=== PATIENT | female | born 1975 | race Caucasian/White ===

== ENCOUNTER 2017-11-03 07:46 | Emergency (ER) | payer OTHER ==
[2017-11-03 07:50] VITALS: BMI 32.9
[2017-11-03] MEDS ORDERED: traMADol HCL 50 MG TABLET PO ONE (08:48)
[2017-11-03] MEDS ORDERED: SODIUM CHLORIDE 0.9% 500 ML INFUS.BAG IV ONE (08:49)
[2017-11-03] MEDS ORDERED: METHYLERGONOVINE MALEATE 0.2 MG/1 ML AMP IM ONE (08:49)
[2017-11-03] MEDS ORDERED: traMADol HCL 50 MG TABLET ONE (08:59)
--- NOTE | 2017-11-03 09:00 | PDOC ---
Attending Attestation - Resident Resident Name: Benito Mcelroy - ED Attending Attestation I have performed the following: I have examined & evaluated the patient, The case was reviewed & discussed with the resident, I agree w/resident's findings & plan, Exceptions are as noted - HPI HPI: 42 yo A3 presents with miscarriage. She states she recently had an ultrasound showing no heart motion, was told that a miscarriage was inevitable. She chose to let it pass naturally. Denies N/V, f/c. She developed heavy bleeding this morning, passed tissue. She still has moderate bleeding, but also has cramping at present. - Physicial Exam PE: GENERAL: Awake, alert, and fully oriented, in no acute distress HEAD: No signs of trauma EYES: PERRLA, EOMI, sclera anicteric, conjunctiva clear ENT: Auricles normal inspection, hearing grossly normal, nares patent, oropharynx clear without exudates. Moist mucosa NECK: Normal ROM, supple, no lymphadenopathy, JVD, or masses LUNGS: Breath sounds equal, clear to auscultation bilaterally. No wheezes, and no crackles HEART: Regular rate and rhythm, normal S1 and S2, no murmurs, rubs or gallops ABDOMEN: Soft, +Mod suprapubic tenderness, normoactive bowel sounds. No guarding, no rebound. No masses EXTREMITIES: Normal range of motion, no edema. No clubbing or cyanosis. No cords, erythema, or tenderness NEUROLOGICAL: Cranial nerves II through XII grossly intact. Normal speech, normal gait SKIN: Warm, Dry, normal turgor, no rashes or lesions noted. : Os is fingertip dilated. +Mod bleeding. - Medical Decision Making Pt with demise, has the tissue at bedside. Sent to pathology for analysis. Pt given methergine IM. Will obtain ultrasound and reassess.
[2017-11-03 09:09] LABS: HEMATOCRIT 37.8 % (32.4-45.2); HEMOGLOBIN 12.4 GM/dL (10.7-15.3); MCH 27.2 pg (25.7-33.7); MCHC 32.9 g/dl (32.0-36.0); MEAN CELL VOLUME 82.7 fl (80-96); MEAN PLT VOLUME 10.1 fl (7.5-11.1); PLATELET COUNT 276 K/MM3 (134-434); RBC 4.57 M/mm3 (3.60-5.2); RDW 14.1 % (11.6-15.6); WHITE BLOOD COUNT 10.1 K/mm3 (4.0-10.0)
--- NOTE | 2017-11-03 09:50 | PDOC ---
History of Present Illness - General Chief Complaint: Vaginal Bleeding Stated Complaint: VAGINAL BLEEDING Time Seen by Provider: 11/03/17 08:09 - History of Present Illness Initial Comments: 42 y/o female presenting to [facility] ER via ambulance complaining of vaginal bleeding and abdominal cramping since 03:30 this morning. Pt was informed of intrauterine demise (at approx. 10 weeks gestational age) two weeks ago and elected to not have the products of conception delivered medically. This is the second such occurrence for her before 20 weeks. She denies lightheadedness, SOB, chest pain, or syncope. LMP: 03 August 2017. OBGYN: [facility] Past History - Past Medical History Allergies/Adverse Reactions: Allergies Allergy/AdvReac Type Severity Reaction Status Date / Time No Known Allergies Allergy Verified 11/03/17 07:50 Home Medications: Ambulatory Orders NK [No Known Home Medication] 09/17/17 Anemia: No Asthma: No Cancer: No Cardiac Disorders: No CVA: No COPD: No CHF: No Dementia: No Diabetes: No GI Disorders: No Disorders: No HTN: No Hypercholesterolemia: No Liver Disease: No Psychiatric Problems: Yes (BIPOLAR) Seizures: No Thyroid Disease: No - Reproductive History (#): 12 Para: 4 Cervical CA: No Dysfunctional Uterine Bleeding: No Ectopic : No Endometrial CA: No Polycystic Ovaries: No Therapeutic (s) & number: Yes (1) Tubal Ligation: No Spontaneous : 2 - Immunization History Td Vaccination: Yes - Suicide/Smoking/Psychosocial Hx Smoking Status: No Smoking History: Never smoked Years of Tobacco Use: 0 Have you smoked in the past 12 months: No Number of Cigarettes Smoked Daily: 0 Cigars Per Day: 0 Information on smoking cessation initiated: No Hx Alcohol Use: No Drug/Substance Use Hx: No Substance Use Type: None Hx Substance Use Treatment: No Review of Systems - Review of Systems Constitutional: No: Chills, Diaphoresis, Fever Respiratory: No: Shortness of Breath Cardiac (ROS): No: Chest Pain, Lightheadedness ABD/GI: Yes: Abdominal cramping : Yes: Discharge (Blood), Pain Integumentary: Yes: Change in Color. No: Sweating Neurological: No: Dizziness *Physical Exam - Vital Signs Last Vital Signs Temp Pulse Resp BP Pulse Ox 97.8 F 85 18 119/76 98 11/03/17 07:47 11/03/17 08:20 11/03/17 07:47 11/03/17 07:47 11/03/17 08:20 - Physical Exam Comments: Constitutional: Well-developed, well-nourished female in no apparent life threat. Found sitting upright on hospital bed. Alert and oriented x4. Answered all questions appropriately and completely. Speech was non-labored, non- pressured. HEENT: Normocephalic. No obvious external signs of trauma. Pale conjunctiva. Hearing grossly normal. No nasal discharge. Neck is supple, trachea is midline. Cardiovascular: Regular rate and regular rhythm. No murmur, rubs, clicks, or gallops. Peripheral pulses: Radial pulses full. Respiratory: Breathing unlabored. Equal chest rise and fall. Clear to auscultation bilaterally. No stridor, no wheezing, no rhonchi. Gastrointestinal: abdomen is mildly tender in suprapubic region. Neuro: Alert and oriented. Moving all four extremities spontaneously. Skin: Pale but otherwise warm, dry, and intact. Psych: Affect: appropriate. Mood: normal FEMALE PELVIC: Normally developed external female genitalia with no external lesions or eruptions. Niels blood at external vaginal opening. Cervix open on bimanual exam. RN chaperoned exam. ED Treatment Course - LABORATORY CBC & Chemistry Diagram: 11/03/17 08:55 - ADDITIONAL ORDERS Additional order review: 11/03/17 08:55 RBC 4.57 MCV 82.7 MCHC 32.9 RDW 14.1 MPV 10.1 - RADIOLOGY Radiology Studies Ordered: Category Date Time Status TRANSVAGINAL ULTRASOUND US [US] Stat Ultrasound 11/03/17 08:57 Ordered - Medications Given in the ED: ED Medications Discontinued Medications Generic Name Dose Route Start Last Admin Trade Name Freq PRN Reason Stop Dose Admin Methylergonovine Maleate 0.2 mg 11/03/17 08:49 11/03/17 09:11 Methergine Injection - IM 11/03/17 08:50 0.2 mg ONCE ONE Administration Sodium Chloride 1,000 ml 11/03/17 08:49 11/03/17 08:55 Normal Saline - IV 11/03/17 08:50 1,000 ml ONCE ONE Administration Tramadol HCl 50 mg 11/03/17 08:48 11/03/17 08:55 Ultram - PO 11/03/17 08:49 50 mg ONCE ONE Administration Medical Decision Making - Medical Decision Making 42 y/o presenting with vaginal bleeding and passed products of conception in setting of known intrauterine demise confirmed by u/s two weeks ago. Afebrile. Vitals unremarkable for hypotension or tachycardia. Bleeding and clots with open OS on bimanual pelvic exam. Pale conjunctiva. Denies anemic symptoms. Product of conception presented in bag. Ordered CBC, transvaginal ultrasound, and IM Methergine. Pt presented products of conception in bag. Sent for pathologic evaluation. CBC did not reveal anemia. U/S showed no intrauterine gestational sac. Heterogeneous material within lower uterine segment cervical canal. Ovaries cannot be visualized. No intraperitoneal fluid. Bleeding continues ordered Oxytocin drip. 11/03/17 14:20 Vaginal bleeding has significantly decreased. Cramping has improved. [place] lightheaded while walking to bathroom. Partner will get food and allow the pt to eat. Pt reports bleeding has almost completely stopped, and she feels much better. Discussed lab and imaging results. Answered all questions. Provided return precautions. Pt and expressed verbal understanding and agreement with plan to discharge home with outpatient OBGYN follow up tomorrow. *DC/Admit/Observation/Transfer Diagnosis at time of Disposition: Vaginal delivery, Missed with demise before 20 completed weeks of gestation - Discharge Dispostion Disposition: HOME Condition at time of disposition: Good Decision to Admit order: No - Referrals Referrals: [facility] [Other] - Patient Instructions Printed Discharge Instructions: DI for Miscarriage Additional Instructions: You may continue to experience occasional abdominal cramping and a small amount of vaginal bleeding over the next few days. Please rest. You will need to [facility] within the next 2- 3 days. You will need to call to make an appointment. The telephone number is in this packet. Come back to the emergency department if your symptoms worsen or you feel as though you need additional emergency evaluation. - Post Discharge Activity
[2017-11-03] MEDS ORDERED: D5W-LR W/ 20 UNITS OXYTOCIN 20 UNIT/1,000 ML INFUS.BAG IV SCH (12:00)
[2017-11-03] MEDS ORDERED: OXYTOCIN 20 UNITS in 0.9% NS 20 UNIT/1,000 ML INFUS.BAG IV SCH (12:15)
[2017-11-03 14:21] VITALS: BP 121/55; PULSE 75; TEMP 98.6
--- NOTE | 2017-11-07 12:33 | PATH ---
Surgical Pathology Report Patient Name: SOY LACKEY [facility]. Rec. #: [id number] /Age/Gender: 1975 (Age: 42) / F Account: [id number] Location: EMERGENCY ROOM Taken: 11/03/2017 Received: 11/06/2017 Reported: 11/07/2017 Physicians: PHYSICIAN EMERGENCY DEPT Specimen(s) Received PRODUCTS OF CONCEPTION Clinical History Spontaneous vaginal delivery of products of conception after known demise. History of similar in 2016. Final Diagnosis PRODUCTS OF CONCEPTION, DELIVERY: IMMATURE FETUS, 2 G. Electronically Signed Genesis Jack M.D. Gross Description Received fresh labeled with the patient's name and indicated on the requisition to be products of conception, is a 2 g intact fetus measuring 3.5 cm from crown to rump. Each foot measures 0.4 cm in length. The upper and lower extremities appear normal. The lumbosacral spine is intact. No discrete abnormalities are identified. The sex cannot be determined. The specimen is submitted in toto in one cassette. 11/06/201711/06/2017
== END 2017-11-03 16:50 | disposition home or self-care (01) ==
LOC: JER 07:46
PROC: 3E033GC Introduction of Other Therapeutic Substance into Peripheral Vein, Percutaneous Approach (ICD-10-PCS; principal; 2017-11-03)
PROC: 3E033GC Introduction of Other Therapeutic Substance into Peripheral Vein, Percutaneous Approach (ICD-10-PCS; 2017-11-03)
DX: O26.891 Other specified pregnancy related conditions, first trimester (principal); O02.1 Missed abortion; Z3A.10 10 weeks gestation of pregnancy
CPT/HCPCS: 36415; 76830-TC; 85027; 88305-TC; 96365; 96366; 96375; 99282-25

== ENCOUNTER 2018-05-15 10:16 | Emergency (ER) | payer OTHER ==
[2018-05-15 10:22] VITALS: BP 123/62; PULSE 73; TEMP 98; BMI 32.9
--- NOTE | 2018-05-15 11:39 | PDOC ---
History of Present Illness - General Chief Complaint: Injury Stated Complaint: SLIP AND FALL Time Seen by Provider: 05/15/18 11:09 - History of Present Illness Initial Comments: 05/15/18 11:37 43-year-old 10 week female presents for evaluation after trip and fall. She states she has no pain she just wanted to get checked out because she is no bleeding or spotting no complaints. Past History - Past Medical History Allergies/Adverse Reactions: Allergies Allergy/AdvReac Type Severity Reaction Status Date / Time No Known Allergies Allergy Verified 05/15/18 10:18 Home Medications: Ambulatory Orders NK [No Known Home Medication] 09/17/17 Anemia: No Asthma: No Cancer: No Cardiac Disorders: No CVA: No COPD: No CHF: No Dementia: No Diabetes: No GI Disorders: No Disorders: No HTN: No Hypercholesterolemia: No Liver Disease: No Psychiatric Problems: Yes (BIPOLAR) Seizures: No Thyroid Disease: No - Reproductive History (#): 12 Para: 4 Cervical CA: No Dysfunctional Uterine Bleeding: No Ectopic : No Endometrial CA: No Polycystic Ovaries: No Therapeutic (s) & number: Yes (1) Tubal Ligation: No Spontaneous : 2 - Immunization History Td Vaccination: Yes - Suicide/Smoking/Psychosocial Hx Smoking Status: No Smoking History: Never smoked Years of Tobacco Use: 0 Have you smoked in the past 12 months: No Number of Cigarettes Smoked Daily: 0 Cigars Per Day: 0 Hx Alcohol Use: No Drug/Substance Use Hx: No Substance Use Type: None Hx Substance Use Treatment: No Review of Systems - Review of Systems Musculoskeletal: Yes: See HPI *Physical Exam - Vital Signs Last Vital Signs Temp Pulse Resp BP Pulse Ox 98.0 F 73 18 123/62 100 05/15/18 10:19 05/15/18 10:19 05/15/18 10:19 05/15/18 10:19 05/15/18 10:19 - Physical Exam Comments: 05/15/18 11:37 HEAD: NC/AT EYES: Conjuntiva clear MS: Full ROM in all joints without edema NEUROLOGIC: No gross sensory or motor deficits, NVID SKIN: Normal color and temperature no lesions or rashes Moderate Sedation - Procedure Monitoring Vital Signs: Procedure Monitoring Vital Signs Temperature 98.0 F 05/15/18 10:19 Pulse Rate 73 03/13/19 10:19 Respiratory Rate 18 05/15/18 10:19 Blood Pressure 123/62 05/15/18 10:19 O2 Sat by Pulse Oximetry (%) 100 05/15/18 10:19 Medical Decision Making - Medical Decision Making 05/15/18 11:38 Full range of motion in all joints, no tenderness no complaints no spotting or abdominal cramping. Nothing to do *DC/Admit/Observation/Transfer Diagnosis at time of Disposition: Fall - Discharge Dispostion Disposition: HOME Condition at time of disposition: Stable Decision to Admit order: No - Referrals - Patient Instructions Printed Discharge Instructions: How to Prevent Falls Additional Instructions: Return to the emergency room for any issues follow-up with her [facility] for further evaluation. - Post Discharge Activity
== END 2018-05-15 11:57 | disposition home or self-care (01) ==
LOC: JERFT 10:16
DX: O26.891 Other specified pregnancy related conditions, first trimester (principal); Z3A.10 10 weeks gestation of pregnancy; Z04.1 Encounter for examination and observation following transport accident; F31.9 Bipolar disorder, unspecified
CPT/HCPCS: 99281-25

== ENCOUNTER 2018-08-13 13:40 | Emergency (ER) | payer OTHER | END 2018-08-13 14:40 | disposition home or self-care (01) | LOC: JER 13:40 ==

== ENCOUNTER 2018-09-06 10:36 | Inpatient (IN) | payer OTHER ==
[2018-09-06 10:52] VITALS: BP 109/53; PULSE 69; TEMP 98.4; BMI 32.9
--- NOTE | 2018-09-06 10:57 | PDOC ---
Attending Attestation - Resident Resident Name: Piotr Sims - ED Attending Attestation I have performed the following: I have examined & evaluated the patient, The case was reviewed & discussed with the resident, I agree w/resident's findings & plan, Exceptions are as noted - HPI HPI: 09/06/18 12:27 Ms Feldman is a 43 yo F presenting with vaginal discharge Pt is , currently approximately 26 weeks , no care Pt notes three days of spotting and white milky discharge after urination after sexual intercourse. This morning, she noticed that the discharge changed color to yellow/orange. Denies fever, chills, chest/AB pain, dysuria, pyuria, hematuria, bowel changes. - Physicial Exam PE: 09/06/18 10:58 GENERAL: The patient is in no acute distress. ENT: Ears normal, nares patent, oropharynx clear without exudates. Moist mucous membranes. NECK: Normal range of motion, supple LUNGS: Breath sounds equal, clear to auscultation bilaterally. No wheezes, and no crackles. HEART:Regular rate and rhythm, normal S1 and S2 without murmur, rub or gallop. ABDOMEN: Soft, nontender, normoactive bowel sounds. PELVIC: Per Dr. Sims EXTREMITIES: Normal range of motion, no edema. NEUROLOGICAL: Cranial nerves II through XII grossly intact. Normal speech. No focal neurological deficits. SKIN: Warm, Dry, normal turgor, no rashes or lesions noted. 09/06/18 12:31 - Critical Care Time Total Critical Care Time: 60 Critical Care Statement: The care of this patient involved high complexity decision making to prevent further life threatening deterioration of the patient 's condition and/or to evaluate & treat vital organ system(s) failure or risk of failure. - Medical Decision Making 09/06/18 12:32 43 yo F that is currently 26 weeks presenting with vaginal discharge and spotting DD: Threatened ab, GC/Chlamydia, BV, nml discharge Will do: Labs US UA Vaginal swabs Re assess 09/06/18 13:01 US: 26 weeks, NO FHR 09/06/18 13:02 Laboratory Tests 09/06/18 09/06/18 09/06/18 12:15 12:21 12:21 WBC 7.5 Hgb 12.5 Hct 37.5 Plt Count 260 Beta HCG, Quant 273.1 Urine Blood Trace Urine Nitrite Negative Ur Leukocyte Esterase Trace Inevitable AB 09/06/18 13:02 Laboratory Tests 09/17/17 10:41 Blood Type AB POSITIVE 09/06/18 15:[address] Sharma 09/06/18 15:[address] Sharma service 09/06/18 15:36 Pt was admitted Pt now states she does not want to stay in the hospital She understands the risks of uterine infection, sepsis, hemorrhage, Note: The patient insists on leaving the emergency dept and is signing out against medical advice. The patient understands the risks and complications that may result from the refusal of medical care and admission which includes and permanent disability. The patient has the mental capacity of understanding the risks of refusing care and is capable of making an informed decision. The patient was instructed to return to the emergency department should she change her mind regarding medical care or should her condition worsen. The patient signed the Against Medical Advice form.
--- NOTE | 2018-09-06 11:21 | PDOC ---
History of Present Illness - General Chief Complaint: Vaginal Sxs Stated Complaint: VAGINAL BLEEDING Time Seen by Provider: 09/06/18 10:57 - History of Present Illness Initial Comments: 09/06/18 11:19 Rachael Feldman is a 43y previously healthy female presenting with vaginal discharge. 3d ago, she noticed spotting and a white milky discharge after urination after sexual intercourse. This morning, she noticed that the discharge changed color to yellow/orange. Denies alcohol, smoking, illicit drug use. Denies fever, chills, chest/AB pain, dysuria, pyuria, hematuria, bowel changes. She is 26 weeks by LMP, no care. , youngest child 9yo. Live pregnancies no complications, full term, vaginal delivery. Sexually active, no protection, no hx of STD. Past History - Past Medical History Allergies/Adverse Reactions: Allergies Allergy/AdvReac Type Severity Reaction Status Date / Time No Known Allergies Allergy Verified 09/06/18 10:49 Home Medications: Ambulatory Orders NK [No Known Home Medication] 09/17/17 Anemia: No Asthma: No Cancer: No Cardiac Disorders: No CVA: No COPD: No CHF: No Dementia: No Diabetes: No GI Disorders: No Disorders: No HTN: No Hypercholesterolemia: No Liver Disease: No Psychiatric Problems: Yes (BIPOLAR) Seizures: No Thyroid Disease: No - Reproductive History (#): 12 Para: 4 Cervical CA: No Dysfunctional Uterine Bleeding: No Ectopic : No Endometrial CA: No Polycystic Ovaries: No Therapeutic (s) & number: Yes (1) Tubal Ligation: No Spontaneous : 2 - Immunization History Td Vaccination: Yes - Suicide/Smoking/Psychosocial Hx Smoking Status: No Smoking History: Unknown if ever smoked Years of Tobacco Use: 0 Have you smoked in the past 12 months: No Number of Cigarettes Smoked Daily: 0 Cigars Per Day: 0 Hx Alcohol Use: No Drug/Substance Use Hx: No Substance Use Type: None Hx Substance Use Treatment: No Review of Systems - Review of Systems Constitutional: No: Chills, Fever HEENTM: No: Eye Pain, Ear Pain, Nose Pain, Nose Congestion, Throat Pain Respiratory: No: Cough, Shortness of Breath, Wheezing Cardiac (ROS): No: Chest Pain, Edema, Palpitations, Syncope ABD/GI: Yes: Abdominal Distended. No: Constipated, Diarrhea, Nausea, Poor Fluid Intake, Rectal Bleeding, Vomiting : Yes: Discharge. No: Burning, Dysuria, Frequency, Hematuria, Incontinence, Pain, Lesions Musculoskeletal: No: Joint Pain, Joint Swelling, Muscle Weakness Integumentary: Yes: Bruising (right shoulder). No: Flushing, Lesions, Lumps, Pallor, Pruritus, Rash Neurological: No: Headache, Paresthesia, Tingling, Tremors, Weakness Psychiatric: No: Anxiety, Depression Endocrine: No: Excessive Sweating, Flushing, Intolerance to Cold, Intolerance to Heat *Physical Exam - Vital Signs Last Vital Signs Temp Pulse Resp BP Pulse Ox 98.4 F 69 16 109/53 L 98 09/06/18 10:51 09/06/18 10:51 09/06/18 10:51 09/06/18 10:51 09/06/18 10:51 - Physical Exam General Appearance: Yes: Nourished, Appropriately Dressed. No: Apparent Distress HEENT: positive: [place], Normal Voice. negative: Scleral Icterus (R), Scleral Icterus (L) Respiratory/Chest: positive: Lungs Clear, Normal Breath Sounds. negative: Chest Tender, Respiratory Distress, Crackles, Rales, Rhonchi, Stridor, Wheezing Cardiovascular: positive: Regular Rhythm, Regular Rate, S1, S2. negative: Edema , Murmur Gastrointestinal/Abdominal: positive: Normal Bowel Sounds, Flat, Soft. negative : Tender, Organomegaly, Guarding, Rebound Integumentary: positive: Normal Color Neurologic: positive: Fully Oriented, Alert, Normal Mood/Affect, Responsive ED Treatment Course - LABORATORY CBC & Chemistry Diagram: 09/06/18 12:21 09/06/18 12:15 Medical Decision Making - Medical Decision Making 09/06/18 11:21 CBC, CMP, UA w cx, HCG, pelvic exam, TVUS CBC, UA negative TVUS showed demise with no evidence of cardiac activity, average sonographic age of 16wks, and oligohydramnios. Rachael Feldman is a 43y previously healthy female presenting with vaginal discharge. TVUS consistent with demise with no evidence of cardiac activity, average sonographic age of 16wks, and oligohydramnios. Pending gonorrhea/chlamydia screen. No evidence of UTI on urinalysis, labs wnl. Left against medical advice before being admitted to Dr. Zachary melgar service *DC/Admit/Observation/Transfer Diagnosis at time of Disposition: demise - Discharge Dispostion Disposition: AGAINST MEDICAL ADVICE Condition at time of disposition: Stable Decision to Admit order: No - Referrals - Patient Instructions - Post Discharge Activity
[2018-09-06] MEDS ORDERED: SODIUM CHLORIDE 0.9% 500 ML INFUS.BAG IV ONE (11:31)
[2018-09-06 12:32] LABS: BASO % 0.6 % (0-2.0); EOS % 2.2 % (0-4.5); HEMATOCRIT 37.5 % (32.4-45.2); HEMOGLOBIN 12.5 GM/dL (10.7-15.3); LYMPH % 16.3 % (8-40); MCH 28.1 pg (25.7-33.7); MCHC 33.3 g/dl (32.0-36.0); MEAN CELL VOLUME 84.3 fl (80-96); MEAN PLT VOLUME 9.2 fl (7.5-11.1); MONO % 4.7 % (3.8-10.2); NEUT % 76.2 % (42.8-82.8); PLATELET COUNT 260 K/MM3 (134-434); RBC 4.45 M/mm3 (3.60-5.2); RDW 13.7 % (11.6-15.6); WHITE BLOOD COUNT 7.5 K/mm3 (4.0-10.0)
[2018-09-06 12:34] LABS: EPI CELLS 4.3 /HPF (0-5/HPF); HYALINE CASTS 3 /lpf (0-8); URINE APPEARANCE CLEAR; URINE BACTERIA 180.9 /hpf (NEGATIVE); URINE BILIRUBIN NEGATIVE (NEGATIVE); URINE COLOR YELLOW; URINE GLUCOSE (UA) NEGATIVE (NEGATIVE); URINE KETONE NEGATIVE (NEGATIVE); URINE LEUK ESTERASE TRACE (NEGATIVE); URINE NITRITE NEGATIVE (NEGATIVE); URINE PROTEIN NEGATIVE (NEGATIVE); URINE RBC 2 /hpf (0-4); URINE UROBILINOGEN 0.2 mg/dL (0.2-1.0); URINE WBC 2 /hpf (0-5)
[2018-09-06 13:00] LABS: ALBUMIN 3.6 g/dl (3.4-5.0); BILIRUBIN,TOTAL 0.3 mg/dL (0.2-1); BLOOD UREA NITROGEN 9.4 mg/dL (7-18); CALCIUM 9.3 mg/dL (8.5-10.1); CREATININE 0.6 mg/dL (0.55-1.3); POTASSIUM 4.7 mmol/L (3.5-5.1); TOT PROT 7.4 g/dl (6.4-8.2)
[2018-09-06] MEDS ORDERED: IBUPROFEN 600 MG TABLET (FP) PO PRN (15:16)
[2018-09-06] MEDS ORDERED: ACETAMINOPHEN 325 MG TABLET (FP) PO PRN (15:16)
[2018-09-06] MEDS ORDERED: ELECTROLYTE-148 SOLN 1,000 ML IV SCH (15:30)
[2018-09-06] MEDS ORDERED: MISOPROSTOL 200 MCG TABLET PO SCH (17:30)
== END 2018-09-06 15:48 | disposition home or self-care (01) | DRG 560 ==
LOC: JER 10:36 → JERBED 15:08
PROVIDERS: ADMIT Obstetrics & Gynecology; ATTEND Obstetrics & Gynecology
DX: O36.4XX0 Maternal care for intrauterine death, not applicable or unspecified (principal); Z37.1 Single stillbirth; Z3A.26 26 weeks gestation of pregnancy
CPT/HCPCS: 36415; 76815-TC; 80053; 81003; 84702; 85025; 86850; 86900; 86901; 87077; 87086; 87186; 87491; 87591; 87661; 99281-25

== ENCOUNTER 2018-09-09 11:29 | Emergency (ER) | payer OTHER ==
[2018-09-09 11:33] VITALS: TEMP 97.7; BMI 32.9
--- NOTE | 2018-09-09 11:43 | PDOC ---
History of Present Illness - General Chief Complaint: Pain Stated Complaint: MISCARRIAGE Time Seen by Provider: 09/09/18 11:42 - History of Present Illness Initial Comments: 43F [id number] currently 26 weeks (LMP 03/06/18) with no significant PMH presenting with spotting and abdominal pain. Patient was present in this ED on Sunday, was found to have intrauterine demise, admitted to station baggage porter service , and left AMA because she had children to take care of at home. Patient returns today with severe 10/10 lower abdominal pain that started this morning and feels like contractions. Vaginal bleeding is bright red and patient notes such while wiping. Denies passage of clots or tissue. Has not taken anything for pain. No urinary symptoms. Patient does not currently follow with an station baggage porter and when she did years ago, would go to a [facility]. She did not receive any care for this . No headaches or vision changes. Denies fever, chills, chest pain, or shortness of breath. 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 Past History - Past Medical History Allergies/Adverse Reactions: Allergies Allergy/AdvReac Type Severity Reaction Status Date / Time No Known Allergies Allergy Verified 09/09/18 11:33 Home Medications: Ambulatory Orders NK [No Known Home Medication] 09/17/17 Anemia: No Asthma: No Cancer: No Cardiac Disorders: No CVA: No COPD: No CHF: No Dementia: No Diabetes: No GI Disorders: No Disorders: No HTN: No Hypercholesterolemia: No Liver Disease: No Psychiatric Problems: Yes (BIPOLAR) Seizures: No Thyroid Disease: No - Reproductive History (#): 12 Para: 4 Cervical CA: No Dysfunctional Uterine Bleeding: No Ectopic : No Endometrial CA: No Polycystic Ovaries: No Therapeutic (s) & number: Yes (1) Tubal Ligation: No Spontaneous : 2 - Immunization History Td Vaccination: Yes Immunization Up to Date: No - Suicide/Smoking/Psychosocial Hx Smoking Status: No Smoking History: Never smoked Years of Tobacco Use: 0 Have you smoked in the past 12 months: No Number of Cigarettes Smoked Daily: 0 Cigars Per Day: 0 Information on smoking cessation initiated: No Hx Alcohol Use: No Drug/Substance Use Hx: No Substance Use Type: None Hx Substance Use Treatment: No Review of Systems - Review of Systems Comments:: Constitutional: no fever, no chills HEENT: no throat pain, no dysphagia Cardiovascular: no chest pain, no palpitations Respiratory: no cough, no shortness of breath Gastrointestinal: +abdominal pain, no nausea Genitourinary: no dysuria, +vaginal bleeding Musculoskeletal: no myalgia, no arthralgia Skin: no rash, no itching Neurologic: no headache, no weakness *Physical Exam - Vital Signs Last Vital Signs Temp Pulse Resp BP Pulse Ox 97.7 F 81 18 122/71 100 09/09/18 11:32 09/09/18 11:32 09/09/18 11:32 09/09/18 11:32 09/09/18 11:32 - Physical Exam Comments: General: Awake, alert, and fully oriented, crying out in pain intermittently Head: No signs of trauma Eyes: EOMI, sclera anicteric ENT: Moist mucus membranes Neck: Normal ROM, supple Lungs: Lungs clear, Normal breath sounds Cardio: Regular rhythm, S1 and S2 present Abdomen: Gravid uterus, Soft, nontender. No guarding, no rebound, no masses. No CVA tenderness Extremities: Normal range of motion, Distal pulses present SKIN: Warm, Dry, normal turgor Neurologic: Cranial nerves II through XII grossly intact. Normal speech Pelvic exam (performed after passage of tissue): External genitalia without erythema, exudate or discharge. Vaginal vault is with dime-sized blood clots. Cervix is of normal color without lesion. The os is fingertip Uterus is noted to be of appropriate size and nontender. No cervical motion tenderness is seen. No masses are palpated. The adnexa are without masses or tenderness. ED Treatment Course - LABORATORY CBC & Chemistry Diagram: 09/09/18 12:04 09/09/18 12:04 Medical Decision Making - Medical Decision Making 43F [id number] currently 26 weeks (LMP 03/06/18) with no significant PMH presenting with spotting and abdominal pain. DDX including but not limited to threatened , ectopic , subchorionic hemorrhage, UTI, cervical/vaginal lesion, thrombocytopenia, pre- eclampsia CBC, CMP, B-hcg TVUS Morphine 09/09/18 11:43 Patient with significant passage of tissue while in the ED Pathology specimen sent Plan for TVUS to assess for retained products of conception Patient states she feels much better and no longer has any abdominal pain, and because of such, declined morphine 09/09/18 12:26 CBC WBC 8.4 K/mm3 (4.0-10.0) 09/09/18 12:04 RBC 4.48 M/mm3 (3.60-5.2) 09/09/18 12:04 Hgb 12.7 GM/dL (10.7-15.3) 09/09/18 12:04 Hct 37.4 % (32.4-45.2) 09/09/18 12:04 MCV 83.5 fl (80-96) 09/09/18 12:04 MCH 28.3 pg (25.7-33.7) 09/09/18 12:04 MCHC 33.9 g/dl (32.0-36.0) 09/09/18 12:04 RDW 13.5 % (11.6-15.6) 09/09/18 12:04 Plt Count 250 K/MM3 (134-434) 09/09/18 12:04 MPV 9.6 fl (7.5-11.1) 09/09/18 12:04 Absolute Neuts (auto) 6.6 K/mm3 (1.5-8.0) 09/09/18 12:04 Neutrophils % 78.2 % (42.8-82.8) 09/09/18 12:04 Lymphocytes % 15.2 % (8-40) 09/09/18 12:04 Monocytes % 4.7 % (3.8-10.2) 09/09/18 12:04 Eosinophils % 1.3 % (0-4.5) 09/09/18 12:04 Basophils % 0.6 % (0-2.0) 09/09/18 12:04 Nucleated RBC % 0 % (0-0) 09/09/18 12:04 No anemia or leukocytosis CMP Sodium 142 mmol/L (136-145) 09/09/18 12:04 Potassium 3.7 mmol/L (3.5-5.1) 09/09/18 12:04 Chloride 108 mmol/L (98-107) H 09/09/18 12:04 Carbon Dioxide 23 mmol/L (21-32) 09/09/18 12:04 Anion Gap 11 MMOL/L (8-16) 09/09/18 12:04 BUN 7.5 mg/dL (7-18) 09/09/18 12:04 Creatinine 0.7 mg/dL (0.55-1.3) 09/09/18 12:04 Est GFR (CKD-EPI)AfAm 124.73 09/09/18 12:04 Est GFR (CKD-EPI)NonAf 107.62 09/09/18 12:04 Random Glucose 85 mg/dL (74-106) 09/09/18 12:04 Calcium 9.4 mg/dL (8.5-10.1) 09/09/18 12:04 Total Bilirubin 0.4 mg/dL (0.2-1) 09/09/18 12:04 AST 13 U/L (15-37) L 09/09/18 12:04 ALT 17 U/L (13-61) 09/09/18 12:04 Alkaline Phosphatase 71 U/L (45-117) 09/09/18 12:04 Total Protein 7.5 g/dl (6.4-8.2) 09/09/18 12:04 Albumin 3.8 g/dl (3.4-5.0) 09/09/18 12:04 Beta HCG, Quant 231.9 mIU/ml 09/09/18 12:04 Electrolytes WNL B-hcg decreased from three days ago, as expected TVUS: "Transabdominal and transvaginal images of the pelvis were submitted. The uterus measures 13.5 x 7.1 cm in sagittal and AP dimension. Endometrial stripe measures 2.1 cm in thickness with heterogeneous echotexture that is extending down to the lower uterine segment and cervical canal suggestive of blood clots versus retained products of conception. No gross color Doppler flow is present. A posterior myometrial fibroid is present measuring 1.8 cm. Both ovaries were not visualized. There is no free fluid in the cul-de-sac IMPRESSION: Thickened endometrial stripe with heterogeneous echotexture extending down to the lower uterine segment and cervical canal. Although no color Doppler flow is seen in the endometrial wall, findings are suggestive of blood clots versus retained products of conception. Correlation with quantitative serum beta hCG and close follow-up ultrasound is recommended for further evaluation. " Patient's vaginal bleeding is now scant. Still without abdominal pain. Lower suspicion for retained products of conception. As patient has stable vitals and normal hemoglobin, she is safe for discharge home with follow-up tomorrow and strong return precautions. Spoke with Dr. Escamilla who recommended follow-up. Amenable to follow-up with her tomorrow at the [facility]. Patient given strong return precautions for hemorrhage, fever, septic presentations 09/09/18 15:48 *DC/Admit/Observation/Transfer Diagnosis at time of Disposition: Miscarriage - Discharge Dispostion Disposition: HOME Condition at time of disposition: Stable - Referrals Referrals: Nathan Escamilla MD [Staff Physician] - - Patient Instructions Printed Discharge Instructions: DI for Miscarriage Additional Instructions: You were seen in the Emergency Department for a miscarriage. We spoke with an station baggage porter provider who would like you to follow-up tomorrow. You can walk in [place] an [place] [address] You can take [id number] tylenol or motrin for pain. Follow the instructions on the medication bottle. Return to the Emergency Department if you experience: -heavy bleeding of bright red blood -severe pain -lightheadedness -shortness of breath -high fever -any other concerning symptoms - Post Discharge Activity Forms/Work/School Notes: Back to Work
[2018-09-09] MEDS ORDERED: SODIUM CHLORIDE 1,000 ML IV STA (12:03)
[2018-09-09] MEDS ORDERED: morphine CARPU-JECT 4 MG/1 ML DISP.SYRIN IVPUSH ONE (12:03)
[2018-09-09] MEDS ORDERED: morphine SULFATE 4 MG/ML VIAL ONE (12:19)
[2018-09-09 12:22] LABS: BASO % 0.6 % (0-2.0); EOS % 1.3 % (0-4.5); HEMATOCRIT 37.4 % (32.4-45.2); HEMOGLOBIN 12.7 GM/dL (10.7-15.3); LYMPH % 15.2 % (8-40); MCH 28.3 pg (25.7-33.7); MCHC 33.9 g/dl (32.0-36.0); MEAN CELL VOLUME 83.5 fl (80-96); MEAN PLT VOLUME 9.6 fl (7.5-11.1); MONO % 4.7 % (3.8-10.2); NEUT % 78.2 % (42.8-82.8); PLATELET COUNT 250 K/MM3 (134-434); RBC 4.48 M/mm3 (3.60-5.2); RDW 13.5 % (11.6-15.6); WHITE BLOOD COUNT 8.4 K/mm3 (4.0-10.0)
[2018-09-09 12:38] LABS: INR 0.97 (0.83-1.09); PROTHROMBIN TIME (PATIENT) 11.5 SEC (9.7-13.0)
[2018-09-09 12:41] LABS: ACTIVATED PTT 27.5 SECONDS (25.2-36.5)
[2018-09-09 13:17] LABS: BLOOD UREA NITROGEN 7.5 mg/dL (7-18); CREATININE 0.7 mg/dL (0.55-1.3); POTASSIUM 3.7 mmol/L (3.5-5.1)
[2018-09-09 13:18] LABS: ALBUMIN 3.8 g/dl (3.4-5.0); BILIRUBIN,TOTAL 0.4 mg/dL (0.2-1); CALCIUM 9.4 mg/dL (8.5-10.1); TOT PROT 7.5 g/dl (6.4-8.2)
--- NOTE | 2018-09-09 14:00 | PDOC ---
Documentation entered by Kelsie Hearn SCRIBE, acting as scribe for Farrukh Escobedo MD. Farrukh Escobedo MD: This documentation has been prepared by the scribe, Kelsie Hearn SCRIBE, under my direction and personally reviewed by me in its entirety. I confirm that the documentation accurately reflects all work, treatment, procedures, and medical decision making performed by me. Attending Attestation - Resident Resident Name: Sonja Hart - ED Attending Attestation I have performed the following: I have examined & evaluated the patient, The case was reviewed & discussed with the resident, I agree w/resident's findings & plan, Exceptions are as noted - HPI HPI: 09/09/18 12:23 The patient was a 43-year-old female, , 26 weeks by date, who was in the ED 3 days ago for evaluation of vaginal discharge and spotting. The patient had a US performed that was consistent with demise. The patient was going to be admitted to Dr. Sharma but left AMA. She presents today with abdominal cramping and spotting that began at 7AM today. - Physicial Exam PE: 09/09/18 12:26 GENERAL: The patient is awake, alert, and fully oriented, Nontoxic - in no acute distress. ABDOMEN: Soft, nontender, no gurading PELVIC: dark blood with clots, +finger tip open, no ttp - Medical Decision Making 09/09/18 12:26 supect pt passed contents - in ED she passed a bag like specimen with fluid intact with palable contents inside bag will obtian US to r/o retained contents will dw assembler 09/09/18 14:36 US noted for thickened endometrial stripe and heterogenous echotecture extending down the lower uterine segment and cervical canal - retained products vs blood clots - pt notes vag bleeding has deminished dramatically 09/09/18 16:39 case dw Ecological Technical Officer will dc the pt with outpatient management tomorrow suspect her US findings cw clots rather retained products
[2018-09-09 16:11] VITALS: BP 118/70; PULSE 78
--- NOTE | 2018-09-10 15:59 | PATH ---
Surgical Pathology Report Patient Name: SOY LACKEY [facility]. Rec. #: [id number] /Age/Gender: 1975 (Age: 43) / F Account: [id number] Location: EMERGENCY ROOM Taken: 09/09/2018 Received: 09/09/2018 Reported: 09/10/2018 Physicians: PHYSICIAN EMERGENCY DEPT Specimen(s) Received PRODUCTS OF CONCEPTION Clinical History 26 weeks with abdominal pain and spotting. Ultrasound on 09/06/18 showed fetus consistent with 16 weeks with no heart beat. Passage of POC on 09/09/18 at 12:20 PM. Final Diagnosis PRODUCTS OF CONCEPTION, DELIVERY: 96 G IMMATURE MARKEDLY MACERATED FETUS WITH DOUBLE LOOSE NUCHAL CORD. 79 G IMMATURE PLACENTA WITH DECIDUAL ACUTE INFLAMMATION AND FOCAL INTRAPARENCHYMAL HEMORRHAGE (<5% OF PLACENTAL SURFACE) , HYPERCOILED TRIVASCULAR UMBILICAL CORD, AND UNREMARKABLE MEMBRANES. Electronically Signed Genesis Jack M.D. Gross Description Received fresh, labeled with the patient's name and indicated on the requisition to be products of conception, it a placenta with an intact amniotic sac. The membranes are patterson-brown and translucent with focal opacities. Opening of the membranes reveals a markedly macerated, intact fetus. The umbilical cord measures 32 cm in length and averages 0.4 cm in diameter. The umbilical cord is hypercoiled (>3 coils/10 cm) and loosely wrapped around the fetus' neck twice. The fetus is 96 g and measures 12 cm from crown to rump. The fetus measures 17.5 cm from crown to heel. Each foot measures 2.3 cm from heel to toe. Each hand and foot displays 5 digits. The internal organs are markedly autolyzed. The sex cannot be determined from the external genitalia. The placenta is 79 g and measures 9.0 x 7.5 x 2.2 cm. The surface is álvarez-brown with minimal fibrin deposition and purpuric caliber vessels. The maternal surface is patterson-red and intact. Sectioning reveals a 1.6 cm in greatest dimension hemorrhagic lesion. The remaining placental parenchyma is patterson-red and spongy. Air Chief Marshal sections are submitted in 7 cassettes as follows: 1-heart and lungs; 2-liver and intestines; 3-kidneys, adrenals and possible gonads; 4-membrane roll and umbilical cord; 5-placental intraparenchymal lesion; 7-1-[id number] full thickness sections of placenta. 09/09/2018 [facility]/09/2018
== END 2018-09-09 16:13 | disposition home or self-care (01) ==
LOC: JER 11:29
DX: O26.892 Other specified pregnancy related conditions, second trimester (principal); O03.9 Complete or unspecified spontaneous abortion without complication; Z3A.26 26 weeks gestation of pregnancy
CPT/HCPCS: 36415; 76830-TC; 80053; 84702; 85025; 85610; 85730; 86850; 86900; 86901; 88305-TC; 99281-25; J7030

== ENCOUNTER 2019-10-25 11:12 | Emergency (ER) | payer OTHER ==
[2019-10-25 11:25] VITALS: PULSE 83; TEMP 98.2; BMI 33.8
[2019-10-25] MEDS ORDERED: METOCLOPRAMIDE HCL INJECTION 10 MG/2 ML VIAL IVPB ONE (12:07)
[2019-10-25] MEDS ORDERED: SODIUM CHLORIDE 1,000 ML IV STA (12:07)
[2019-10-25] MEDS ORDERED: ACETAMINOPHEN 1000 MG/100 ML VIAL (NON FORMULARY) IVPB ONE (12:07)
--- NOTE | 2019-10-25 12:09 | PDOC ---
History of Present Illness - General Chief Complaint: Lightheaded Stated Complaint: LIGHTHEADED Time Seen by Provider: 10/25/19 11:33 History Source: Patient Exam Limitations: No Limitations Past History - Travel History Traveled outside of the country in the last 30 days: No Close contact w/someone who was outside of country & ill: No - Medical History Allergies/Adverse Reactions: Allergies Allergy/AdvReac Type Severity Reaction Status Date / Time No Known Allergies Allergy Verified 09/09/18 11:33 Home Medications: Ambulatory Orders Amoxicillin - [Amoxicillin 500mg Capsule -] 500 mg PO TID 10/25/19 Anemia: No Asthma: No Cancer: No Cardiac Disorders: No CVA: No COPD: No CHF: No Dementia: No Diabetes: No GI Disorders: No Disorders: No HTN: No Hypercholesterolemia: No Liver Disease: No Psychiatric Problems: Yes (BIPOLAR) Seizures: No Thyroid Disease: No Other medical history: demise 09/20 - Reproductive History Is Patient Now?: No (#): 12 Para: 4 Cervical CA: No Dysfunctional Uterine Bleeding: No Ectopic : No Endometrial CA: No Polycystic Ovaries: No Therapeutic (s) & number: Yes (1) Tubal Ligation: No Spontaneous : 2 - Immunization History Td Vaccination: Yes Immunization Up to Date: No - Psycho-Social/Smoking History Smoking Status: No Smoking History: Unknown if ever smoked Years of Tobacco Use: 0 Have you smoked in the past 12 months: No Number of Cigarettes Smoked Daily: 0 Cigars Per Day: 0 - Substance Abuse Hx (Audit-C & DAST Scrn) How often the patient has a drink containing alcohol: Monthly or less Score: In Men: 4 or > Positive; In Women: 3 or > Positive: 1 Screen Result (Pos requires Nsg. Audit-10AR): Negative In the last yr the pt used illegal drug/Rx for NonMed reason: No Score: Yes response is considered Positive: 0 Screen Result (Positive result requires Nsg. DAST-10): Negative Review of Systems - Review of Systems Able to Perform ROS?: Yes Comments:: 10/25/19 13:27 CONSTITUTIONAL: Absent: fever, chills, diaphoresis, generalized weakness, malaise, loss of appetite HEENT: Absent: rhinorrhea, nasal congestion, throat pain, throat swelling, difficulty swallowing, mouth swelling, ear pain, eye pain, visual changes CARDIOVASCULAR: Absent: chest pain, loss of consciousness, palpitations, irregular heart rate, peripheral edema RESPIRATORY: Absent: cough, shortness of breath, dyspnea with exertion, orthopnea, wheezing, stridor, hemoptysis GASTROINTESTINAL: Absent: abdominal pain, abdominal distension, nausea, vomiting, diarrhea, constipation, melena, hematochezia GENITOURINARY: Absent: dysuria, frequency, urgency, hesitancy, hematuria, flank pain, genital pain MUSCULOSKELETAL: Absent: myalgia, arthralgia, joint swelling SKIN: Absent: rash, itching, pallor HEMATOLOGIC/IMMUNOLOGIC: Absent: easy bleeding, easy bruising, lymphadenopathy, frequent infections ENDOCRINE: Absent: unexplained weight gain, unexplained weight loss, heat intolerance, cold intolerance NEUROLOGIC: Present: lightheaded Absent: headache, focal weakness or paresthesias, dizziness, unsteady gait, seizure, mental status changes, bladder or bowel incontinence PSYCHIATRIC: Absent: anxiety, depression, suicidal or homicidal ideation, hallucinations. Is the patient limited Icelandic proficient: No *Physical Exam - Vital Signs Last Vital Signs Temp Pulse Resp BP Pulse Ox 98.2 F 83 16 121/77 98 10/25/19 11:17 10/25/19 11:17 10/25/19 11:17 10/25/19 11:17 10/25/19 11:17 - Physical Exam 10/25/19 13:32 GENERAL: Well developed, well nourished. Awake and alert. No acute distress. HEENT: Normocephalic, atraumatic. PERRLA, EOMI. No conjunctival pallor. Sclera are non-icteric. Moist mucous membranes. Oropharynx is clear. NECK: Supple. Full ROM. No JVD. Carotid pulses 2+ and symmetric, without bruits. No thyromegaly. No lymphadenopathy. CARDIOVASCULAR: Regular rate and rhythm. No murmurs, rubs, or gallops. Distal pulses are 2+ and symmetric. PULMONARY: No evidence of respiratory distress. Lungs clear to auscultation bilaterally. No wheezing, rales or rhonchi. ABDOMINAL: Soft. Non-tender. Non-distended. No rebound or guarding. No organomegaly. Normoactive bowel sounds. MUSCULOSKELETAL Normal range of motion at all joints. No bony deformities or tenderness. No CVA tenderness. EXTREMITIES: No cyanosis. No clubbing. No edema. No calf tenderness. SKIN: Warm and dry. Normal capillary refill. No rashes. No jaundice. NEUROLOGICAL: Alert, awake, appropriate. Cranial nerves 2-12 intact. No deficits to light touch and temperature in face, upper extremities and lower extremities. No motor deficits in the in face, upper extremities and lower extremities. Normoreflexic in the upper and lower extremities. Normal speech. Toes are down-going bilaterally. Gait is normal without ataxia. PSYCHIATRIC: Cooperative. Good eye contact. Appropriate mood and affect. ED Treatment Course - LABORATORY CBC & Chemistry Diagram: 10/25/19 12:40 10/25/19 12:40 Medical Decision Making - Medical Decision Making 10/25/19 13:33 Patient is a 44-year-old female no past medical history who presents to the ER for 3 weeks of lightheadedness. She states that her head feels "funny"; however, she denies dizziness, weakness, numbness and tingling. She endorses getting teeth pulled on Sunday and is currently on amoxicillin. She states that her symptoms started before her dental procedure. She also notes having a headache over her sinus region. A/P: Lightheadedness. Patient is neurologically intact with no focal deficits on exam. Lungs are clear to auscultation bilateral without wheezes rales or rhonchi. Heart regular rate and rhythm without murmurs rubs or gallops. Broad differential. Patient appears stable on exam. Differential to include but not limited to headache, sinusitis, ACS, anemia, hypothyroidism, visual changes Labs, head CT, EKG, orthostatics ordered EKG: Rate 73 bpm, normal sinus rhythm. Normal intervals and axis. No acute ST- T wave changes. Overall normal ECG. Reevaluate 10/25/19 14:54 Lab work otherwise unremarkable. Troponin within normal limits. TSH also normal. Head CT shows no acute pathology. Visual acuity exam, OU 25/20, OD 25/20, OS 30/20 uncorrected Suspect the lightheadedness is due to visual changes. Will refer to ophthalmology and primary care for further management. Discharge home Return precautions given. I discussed the physical exam findings, ancillary test results and final diagnoses with the patient. I answered all of the patient's questions. The patient was satisfied with the care received and felt comfortable with the discharge plan and treatment plan. The Patient agrees to follow up with the primary care physician/specialist within 24-72 hours. Return precautions were given. Discharge - Discharge Information Problems reviewed: Yes Clinical Impression/Diagnosis: Lightheaded Condition: Stable Disposition: HOME - Admission No - Follow up/Referral Referrals: Gurpreet Vazquez MD [Staff Physician] - - Patient Discharge Instructions Patient Printed Discharge Instructions: DI for Dizziness-Nonvertigo Additional Instructions: You were seen today for your lightheadedness. Your lab work, EKG and head CT were all normal. You did have some visual changes in our office today. Please follow-up with ophthalmology this week. A referral has been provided to you. Follow-up with your primary care doctor within the week. Return to the ER for increasing lightheadedness or dizziness, chest pain, palpitations or go any changes in your symptoms. Marking Machine Tender: Dinesh Goncalves [address] [place] [address] - Post Discharge Activity
[2019-10-25 12:49] LABS: HEMATOCRIT 41.8 % (32.4-45.2); LYMPH % 23.8 % (8-40); MCH 27.5 pg (25.7-33.7); MCHC 33.5 g/dl (32.0-36.0); MEAN PLT VOLUME 9.1 fl (7.5-11.1); MONO % 5.5 % (3.8-10.2); NEUT % 66.7 % (42.8-82.8); PLATELET COUNT 280 K/MM3 (134-434); RDW 13.8 % (11.6-15.6)
[2019-10-25] MEDS ORDERED: METOCLOPRAMIDE HCL INJECTION 10 MG/2 ML VIAL ONE (12:50)
[2019-10-25] MEDS ORDERED: ACETAMINOPHEN INJECTION 100 ML IVPB ONE (12:51)
[2019-10-25 13:11] LABS: ALBUMIN 4.2 g/dl (3.4-5.0); ALK PHOS 81 U/L (45-117); ANION GAP 7 MMOL/L (8-16); BILIRUBIN,TOTAL 0.4 mg/dL (0.2-1); BLOOD UREA NITROGEN 13.3 mg/dL (7-18); CALCIUM 9.3 mg/dL (8.5-10.1); CHLORIDE 106 mmol/L (98-107); CO2 25 mmol/L (21-32); CREATININE 0.8 mg/dL (0.55-1.3); GLUCOSE,RANDOM 90 mg/dL (74-106); POTASSIUM 4.7 mmol/L (3.5-5.1); SGOT/AST 13 U/L (15-37); SGPT/ALT 21 U/L (13-61); SODIUM 138 mmol/L (136-145); TOT PROT 7.6 g/dl (6.4-8.2)
[2019-10-25 14:45] LABS: HCG,QUALITATIVE URINE Negative
[2019-10-25 14:46] LABS: EPI CELLS 32 /uL (0-25.1); HYALINE CASTS 1 /uL (0-3.1); PH,URINE 5.5 (5.0-8.0); URINE APPEARANCE CLEAR; URINE BACTERIA 262 /uL (0-1359); URINE BILIRUBIN NEGATIVE (NEGATIVE); URINE COLOR YELLOW; URINE GLUCOSE (UA) NEGATIVE (NEGATIVE); URINE KETONE NEGATIVE (NEGATIVE); URINE LEUK ESTERASE NEGATIVE (NEGATIVE); URINE NITRITE NEGATIVE (NEGATIVE); URINE PROTEIN NEGATIVE (NEGATIVE); URINE RBC 13 /uL (0-23.9); URINE WBC 18 /uL (0-25.8)
[2019-10-25 15:32] VITALS: BP 118/65
--- NOTE | 2019-10-27 21:52 | EKG ---
Test Reason : Blood Pressure : / mmHG Vent. Rate : 073 BPM Atrial Rate : 073 BPM P-R Int : 126 ms QRS Dur : 078 ms QT Int : 384 ms P-R-T Axes : 053 039 034 degrees QTc Int : 423 ms NORMAL SINUS RHYTHM NORMAL ECG NO PREVIOUS ECGS AVAILABLE Confirmed by RHIANNON ADORNO MD ([id number]) on 10/27/2019 9:52:29 PM Referred By: Confirmed By:RHIANNON ADORNO MD
== END 2019-10-25 15:22 | disposition home or self-care (01) ==
LOC: JER 11:12
PROC: 3E0333Z Introduction of Anti-inflammatory into Peripheral Vein, Percutaneous Approach (ICD-10-PCS; principal; 2019-10-25)
PROC: 3E033GC Introduction of Other Therapeutic Substance into Peripheral Vein, Percutaneous Approach (ICD-10-PCS; 2019-10-25)
PROC: 3E0337Z Introduction of Electrolytic and Water Balance Substance into Peripheral Vein, Percutaneous Approach (ICD-10-PCS; 2019-10-25)
DX: R42 Dizziness and giddiness (principal)
CPT/HCPCS: 36415; 70450-TC; 80053; 81003; 82550; 84443; 84484; 84703; 85025; 93005; 93010; 99285-25; J0131

== ENCOUNTER 2022-06-03 17:49 | Emergency (ER) | payer OTHER ==
[2022-06-03 17:56] VITALS: BP 121/64; PULSE 86; RESP 18; TEMP 97.4; BMI 33.8
[2022-06-03 19:32] LABS: EOS % 2.7 % (0-4.5); HEMATOCRIT 37.9 % (32.4-45.2); HEMOGLOBIN 12.7 GM/dL (10.7-15.3); LYMPH % 21.3 % (8-40); MCH 26.9 pg (25.7-33.7); MCHC 33.5 g/dl (32.0-36.0); MEAN CELL VOLUME 80.3 fl (80-96); MONO % 5.8 % (3.8-10.2); NEUT % 69.2 % (42.8-82.8); PLATELET COUNT 262 10^3/uL (134-434); RBC 4.71 M/mm3 (3.60-5.2); RDW 14.2 % (11.6-15.6); WHITE BLOOD COUNT 7.8 K/mm3 (4.0-10.0)
[2022-06-03 19:35] LABS: EPI CELLS 13 /uL (0-25.1); HYALINE CASTS 1 /uL (0-3.1); PH,URINE 5.5 (5.0-8.0); URINE APPEARANCE CLEAR; URINE BACTERIA 153 /uL (0-1359); URINE BILIRUBIN NEGATIVE (NEGATIVE); URINE COLOR YELLOW; URINE GLUCOSE (UA) NEGATIVE (NEGATIVE); URINE KETONE NEGATIVE (NEGATIVE); URINE LEUK ESTERASE 2+ (NEGATIVE); URINE NITRITE NEGATIVE (NEGATIVE); URINE PROTEIN NEGATIVE (NEGATIVE); URINE RBC 715 /uL (0-23.9); URINE WBC 100 /uL (0-25.8)
[2022-06-03] MEDS ORDERED: CEPHALEXIN MONOHYDRATE 500 MG CAPSULE (UD) PO ONE (19:59)
[2022-06-03 20:02] LABS: ALBUMIN 3.5 g/dl (3.4-5.0); BLOOD UREA NITROGEN 8.6 mg/dL (7-18); CALCIUM 9.2 mg/dL (8.5-10.1)
[2022-06-03] MEDS ORDERED: CEPHALEXIN MONOHYDRATE 500 MG CAPSULE (UD) ONE (20:04)
[2022-06-03 20:05] LABS: CREATININE 0.6 mg/dL (0.55-1.3)
[2022-06-03 20:07] LABS: BILIRUBIN,TOTAL 0.3 mg/dL (0.2-1)
== END 2022-06-04 00:24 | disposition home or self-care (01) ==
LOC: JER 17:49
DX: O20.0 Threatened abortion (principal); O23.31 Infections of other parts of urinary tract in pregnancy, first trimester; N39.0 Urinary tract infection, site not specified; Z3A.01 Less than 8 weeks gestation of pregnancy
CPT/HCPCS: 36415; 76830-TC; 80053; 81003; 84702; 85025; 87086; 99284-25

== ENCOUNTER 2022-06-28 16:39 | Emergency (ER) | payer OTHER ==
[2022-06-28] MEDS ORDERED: ACETAMINOPHEN 1000 MG/100 ML BAG IVPB ONE (17:11)
[2022-06-28 17:14] VITALS: RESP 18; TEMP 98.1; BMI 36.6
[2022-06-28] MEDS ORDERED: ACETAMINOPHEN INJECTION 100 ML IVPB ONE (17:19)
[2022-06-28] MEDS ORDERED: METOCLOPRAMIDE HCL INJECTION 10 MG/2 ML VIAL IVPB ONE (17:28)
[2022-06-28] MEDS ORDERED: METOCLOPRAMIDE HCL INJECTION 10 MG/2 ML VIAL ONE (17:30)
[2022-06-28 17:43] LABS: BASO % 0.2 % (0-2.0); EOS % 0.1 % (0-4.5); HEMATOCRIT 33.5 % (32.4-45.2); HEMOGLOBIN 11.3 GM/dL (10.7-15.3); MCH 27.3 pg (25.7-33.7); MCHC 33.8 g/dl (32.0-36.0); MEAN PLT VOLUME 10.1 fl (7.5-11.1); MONO % 2.4 % (3.8-10.2); NEUT % 92.3 % (42.8-82.8); PLATELET COUNT 272 10^3/uL (134-434); RBC 4.13 M/mm3 (3.60-5.2); RDW 13.6 % (11.6-15.6); WHITE BLOOD COUNT 12.5 K/mm3 (4.0-10.0)
[2022-06-28 18:07] LABS: CALCIUM 8.8 mg/dL (8.5-10.1)
[2022-06-28 18:08] LABS: ALBUMIN 3.5 g/dl (3.4-5.0); BLOOD UREA NITROGEN 13.9 mg/dL (7-18)
[2022-06-28] MEDS ORDERED: SODIUM CHLORIDE 0.9% 500 ML INFUS.BAG IV ONE (18:08)
[2022-06-28 18:11] LABS: CREATININE 0.8 mg/dL (0.55-1.3)
[2022-06-28 18:13] LABS: BILIRUBIN,TOTAL 0.5 mg/dL (0.2-1); TOT PROT 6.6 g/dl (6.4-8.2)
[2022-06-28 18:28] LABS: ANISOCYTOSIS 1+; MACROCYTOSIS 0
[2022-06-28] MEDS ORDERED: IBUPROFEN 400 MG TABLET (FP) PO ONE ×2 (20:38→20:59)
[2022-06-28 21:05] VITALS: BP 116/84; PULSE 103
== END 2022-06-28 21:10 | disposition home or self-care (01) ==
LOC: JER 16:39
PROC: 3E033NZ Introduction of Analgesics, Hypnotics, Sedatives into Peripheral Vein, Percutaneous Approach (ICD-10-PCS; principal; 2022-06-28)
PROC: 3E033GC Introduction of Other Therapeutic Substance into Peripheral Vein, Percutaneous Approach (ICD-10-PCS; 2022-06-28)
DX: O03.9 Complete or unspecified spontaneous abortion without complication (principal); O21.9 Vomiting of pregnancy, unspecified; O26.891 Other specified pregnancy related conditions, first trimester; R10.84 Generalized abdominal pain; R42 Dizziness and giddiness; R11.0 Nausea; R68.83 Chills (without fever); Z3A.10 10 weeks gestation of pregnancy
CPT/HCPCS: 36415; 76817-TC; 80053; 84702; 85025; 86850; 86900; 86901; 99284-25

== ENCOUNTER 2023-12-20 15:02 | Emergency (ER) | payer OTHER ==
[2023-12-20 15:10] VITALS: BP 131/84; PULSE 85; RESP 20; TEMP 97.9; BMI 32.9
[2023-12-20] MEDS ORDERED: METOCLOPRAMIDE HCL INJECTION 10 MG/2 ML VIAL ONE (16:34)
[2023-12-20] MEDS ORDERED: ACETAMINOPHEN INJECTION 100 ML ONE (16:34)
[2023-12-20] MEDS: ACETAMINOPHEN 1000 MG/100 ML BAG IVPB ONE (17:20)
[2023-12-20] MEDS: METOCLOPRAMIDE HCL INJECTION 10 MG/2 ML VIAL IVPB ONE (17:24)
[2023-12-20 17:32] LABS: EOS % 2.1 % (0-4.5); HEMOGLOBIN 13.8 GM/dL (10.7-15.3); LYMPH % 14.2 % (8-40); MCHC 34.5 g/dl (32.0-36.0); MEAN PLT VOLUME 9.1 fl (7.5-11.1); MONO % 4.1 % (3.8-10.2); NEUT % 78.6 % (42.8-82.8); PLATELET COUNT 345 10^3/uL (134-434); RBC 4.94 M/mm3 (3.60-5.2); RDW 13.9 % (11.6-15.6); WHITE BLOOD COUNT 9.8 K/mm3 (4.0-10.0)
[2023-12-20 18:35] LABS: POTASSIUM 4.4 mmol/L (3.5-5.1)
[2023-12-20 18:37] LABS: CALCIUM 9.4 mg/dL (8.5-10.1)
[2023-12-20 18:42] LABS: CREATININE 0.7 mg/dL (0.55-1.3)
[2023-12-20 18:43] LABS: BILIRUBIN,TOTAL 0.6 mg/dL (0.2-1); TOT PROT 7.6 g/dl (6.4-8.2)
== END 2023-12-20 19:21 | disposition home or self-care (01) ==
LOC: JER 15:02
PROC: 3E033NZ Introduction of Analgesics, Hypnotics, Sedatives into Peripheral Vein, Percutaneous Approach (ICD-10-PCS; principal; 2023-12-20)
PROC: 3E033GC Introduction of Other Therapeutic Substance into Peripheral Vein, Percutaneous Approach (ICD-10-PCS; 2023-12-20)
DX: R51.9 Headache, unspecified (principal); R42 Dizziness and giddiness
CPT/HCPCS: 36415; 80053; 85025; 99284-25; J0131